=== PATIENT | female | born 1985 | race Caucasian/White ===

== ENCOUNTER 2019-06-19 21:52 | Emergency (ER) | payer BC ==
[2019-06-19] MEDS ORDERED: Pantoprazole 40 mg EC Tab PO STA (23:29)
[2019-06-19] MEDS ORDERED: Maalox 30 mL Cup PO ONE (23:30)
[2019-06-19] MEDS ORDERED: Maalox 30 mL Cup ONE (23:38)
[2019-06-19] MEDS ORDERED: Pantoprazole 40 mg EC Tab PO ONE (23:39)
[2019-06-19 23:53] LABS: % EOSINOPHILS 9.3 % (0.0-5.0); % LYMPHOCYTES 25.4 % (20.0-50.0); % MONOCYTES 9.7 % (2.0-10.0); % NEUTROPHILS 54.6 % (40.0-80.0); BASOPHILE ABSOLUTE 0.1 Th/cumm (0-0.2); EOSINOPHILE ABSOLUTE 0.6 Th/cmm (0.1-0.4); HEMOGLOBIN 13.3 gm/dL (12-16); LYMPHOCYTE ABSOLUTE 1.5 Th/cmm (1.5-3.0); MEAN CELL VOLUME 90.6 fl (81-100); MEAN CORPUSCULAR HEMOGLOBIN 30.2 pg (27.0-31.0); MEAN CORPUSCULAR HGB CONC 33.3 pg (28.0-36.0); MONOCYTE ABSOLUTE 0.6 Th/cmm (0.3-1.0); NEUTROPHILE ABSOLUTE 3.3 Th/cmm (1.8-8.0); PLATELET COUNT 187 Th/cmm (150-400); RED BLOOD COUNT 4.41 Mil/cmm (3.80-5.10); RED CELL DISTRIBUTION WIDTH 12.4 % (11.5-20.0); WHITE BLOOD COUNT 6.1 Th/cmm (4.8-10.8)
[2019-06-19 23:54] LABS: URINE SOURCE CLEAN C
[2019-06-20 00:06] LABS: ALB/GLOB RATIO 1.4 (1.0-1.8); ALBUMIN 3.9 gm/dL (3.7-5.3); ALKALINE PHOSPHATASE 52 U/L (34-104); ANION GAP 12.2 (7.0-16.0); BUN - UREA NITROGEN 12 mg/dL (7-25); CARBON DIOXIDE 25.7 mEq/L (21.0-31.0); CHLORIDE 106 mEq/L (98-107); CHOLESTEROL 129 mg/dL (<200); CREATININE - SERUM 0.7 mg/dL (0.6-1.2); GFR AFRICAN-AMERICAN > 60.0 ml/min (>90); GFR NON AFRICAN-AMERICAN > 60.0 ml/min; GLUCOSE 96 mg/dL (70-105); HDL -HIGH DENSITY LIPOPROTEIN 37 mg/dL (23-92); LIPASE 13 U/L (11-82); POTASSIUM SERUM 3.9 mEq/L (3.5-5.1); SGOT 21 U/L (13-39); SGPT/ALT 31 U/L (7-52); SODIUM SERUM 140 mEq/L (136-145); TOTAL PROTEIN,SERUM 6.6 gm/dL (6.0-8.3); TRIGLYCERIDES 138 mg/dL (<150)
[2019-06-20 00:17] LABS: URINE BILIRUBIN NEGATIVE (NEGATIVE); URINE BLOOD TRACE (NEGATIVE); URINE GLUCOSE (UA) NEGATIVE (NEGATIVE); URINE KETONE NEGATIVE (NEGATIVE); URINE LEUKOCYTE ESTERASE NEGATIVE (NEGATIVE); URINE MICROSCOPIC INDICATED? YES; URINE NITRATE NEGATIVE (NEGATIVE); URINE PROTEIN NEGATIVE (NEGATIVE); URINE UROBILINOGEN 0.2 E.U./dL (0.2 - 1.0)
[2019-06-20 00:25] LABS: URINE CLARITY SLIGHT HAZY (CLEAR); URINE COLOR YELLOW
[2019-06-20 00:30] LABS: URINE BACTERIA NONE SEEN /hpf (NONE SEEN); URINE EPITHELIAL CELLS RARE /lpf (FEW); URINE WBC 0-2 /hpf (0-5)
[2019-06-20 00:31] LABS: URINE RBC 0-2 /hpf (0-5)
[2019-06-20 00:36] LABS: AMPHETAMINE URINE NEGATIVE (NEGATIVE); BARBITURATES URINE NEGATIVE (NEGATIVE); BENZODIAZEPINES QUAL URINE NEGATIVE (NEGATIVE); CANNABINOID THC NEGATIVE (NEGATIVE); COCAINE METABOLITE QUAL URINE NEGATIVE (NEGATIVE); METHADONE URINE NEGATIVE (NEGATIVE); METHAMPHETAMINES QUAL URINE NEGATIVE (NEGATIVE); OPIATES (MORPHINE) QUAL. URINE NEGATIVE (NEGATIVE); PHENCYCLIDINE (PCP) URINE NEGATIVE (NEGATIVE); TRICYCLICS (TCA) QUAL. URINE NEGATIVE (NEGATIVE)
[2019-06-20 00:40] LABS: ALB/GLOB RATIO 1.6 (1.0-1.8); ALBUMIN 4.1 gm/dL (3.7-5.3); TOTAL PROTEIN,SERUM 6.6 gm/dL (6.0-8.3)
[2019-06-20 00:41] LABS: BILIRUBIN,DIRECT 0.07 mg/dL (0.0-0.2)
--- NOTE | 2019-06-20 00:51 | ER Physician Documentation ---
DATE OF SERVICE: IDENTIFICATION: A 34-year-old female. She is a full code patient. Her body surface area is 2 square meters. CHIEF COMPLAINT AND HISTORY OF PRESENT ILLNESS: Right lumbar pain and right side of the abdomen since yesterday for more than 36 hours and today it has worsened up and went all over the abdomen. She felt some gastric discomfort also for which she took some Pepto-Bismol and she took Aleve 2 tablets twice a day today, and off and on, she has been taking Aleve to relieve the pain. By the way, she also takes once a week, a few beers as needed. She does not smoke. She once did try marijuana cigarette, she did say that yes she inhaled a little bit, but no side effect occurred according to her. She denies any history of any pancreatitis. She gives a history suggestive of gastritis and GERD, one needs to rule out if she has any pancreatitis. There is no history of any heart disease, liver disease. There is no history of any palpitations. Pulmonary page, no history of any pneumonia, TB, pulmonary embolism, COPD, emphysema, bronchitis. Other than taking one gulp from the Pepto-Bismol, she took it by herself on her own. Perhaps, she might have tried that before and she has been taking Aleve on a regular basis, at least a couple of times a month, 4 tablets a day, 2 tablets twice a day, which is NSAID and which along with beer will make her life miserable and give her gastritis, GERD, esophagitis, can also give rise to perforation and can give a history of chronic abdominal epigastric pain. She would need chronically taking a PPI along with Reglan and she might need an EGD to be done to see if there is any H. pylori infection or any gastritis, GERD, or any esophagitis, etc. is present or not. The patient is passing some gas from below. Other than that, she does not have any significant complaints. Past history is otherwise benign and negative. She said she had checked up by her spa attendant. She had ultrasound for both her ovaries through the vaginal examination and the ovaries were normal. At least, she denied any pelvic infections to me. She did not take any antibiotics that she never had any upper endoscopy or lower endoscopy done before. She is a little chubby. Her vital signs done by the nurse shows temperature to be 97.8, pulse of 70, respirations of 18, blood pressure 123/77, oxygen saturation 96%, height 5 feet 6 inches, weighing 201 pounds, so she is mildly obese. MEDICAL HISTORY: Otherwise benign and negative. SURGICAL HISTORY: She has a cholecystectomy done before. FAMILY HISTORY: Essentially benign and negative. PERSONAL HISTORY: She is for the past 7 years. She knows her for the past 15 years. Her pain level according to the nurse writing is 7/10. She is a full code patient. Ambulatory: Yes. ALLERGIES: No known allergies. The patient does have some nausea and right lower quadrant pain, but there is no definite evidence of appendicitis present. There is no history of any Gabriel's sign because the gallbladder is out. There is no history that suggests that she has a biliary stone, etc. She denies any chest pain, cardiomyopathy, etc. REVIEW OF SYSTEMS: EYES: No history of double vision, blurring, blindness. CENTRAL NERVOUS SYSTEM: No history of TIA, stroke, encephalitis, meningitis. PULMONARY: No history of pneumonia, TB, pulmonary embolism, COPD, emphysema, bronchitis. BONES AND JOINTS: No significant complaints. Overall, general body stature appears to show that she is mildly obese. Advised to eat less fat, less cholesterol, and more ambulatory status and avoid drinking of beer and avoid to use any nonsteroidal anti-inflammatory drugs which includes aspirin, Bufferin, ibuprofen, Aleve, and any other plenty of nonsteroidal anti-inflammatory drugs which could include tramadol, Ultram, or diclofenac; all these things can cause gastritis along with the use of alcohol that can also cause gastritis, GERD, esophagitis, and regurgitation and maybe aspiration pneumonia, but none of that is present at the present moment. No gout, mild degenerative joint disease and she has to lose weight, otherwise she will be getting more osteoarthritis as the time goes by and if she gains more weight. GENITOURINARY: No burning, no frequency, no dysuria. ENDOCRINE: No diabetes mellitus. No hypo- or hyperthyroidism. No Yudith syndrome. Other review of system is essentially normal. Cancer page negative. Blood disease, essentially negative. No childhood diseases. No congenital disease, no acquired disease. PHYSICAL EXAMINATION: VITAL SIGNS: I already mentioned the vital signs. GENERAL: She appears to be awake, alert, oriented, not in any acute cardiorespiratory distress. Minimal aches and pains. To me, her pain level is not 7 out 10. To me, I would say it is 2 or 3 out of 10 by looking at her and by examination of her and feeling of her. CENTRAL NERVOUS SYSTEM: Appears to be normal. EAR, NOSE, THROAT: Appears to be normal. No otitis media. No meningeal signs. CHEST: Clear. NECK: Trachea being central. LUNGS: Fairly good air entry in both lungs burgos. No rales, rhonchi. or bronchial breathing. ABDOMEN: Epigastric mild tenderness noted. Vague tenderness noted all over the abdomen. No tenderness noted in the costovertebral angle. BONES AND JOINTS: Essentially minimal osteoarthritis is present. CLINICAL IMPRESSION: The patient presented with abdominal pain, most likely the patient may be having gastritis, esophagitis, gastroesophageal reflux disease. Pancreatitis needs to be ruled out and the patient is advised not to take any nonsteroidal anti-inflammatory drugs. Advised not to drink any alcoholic beverages, no smoking, not taking any Aleve, not taking any other nonsteroidal drugs or steroids, etc. and not alcohol 100% because it will make her life miserable and her symptoms more worsened. Drug screen has been ordered to see if there is any other drug that she may be taking that I am not aware, so we will check that out to see if there is any drug screen or is there a urine culture and sensitivity has been ordered. Lipase level, amylase level has been ordered. CBC and liver profile has been ordered. The patient has been given aluminum hydroxide, Mylicon, which I do not think we have it, so we gave her Maalox 80 mg, Reglan 10 mg p.o., and Protonix has been given, and I believe we will wait for the lab results to come back. If she has some diarrhea or something, maybe she might be having minimal electrolyte imbalance and if her lipid profile is high, we will advise her to cut down the cholesterol intake and the patient should see her own physician. She also has told me by the way that she has HPV positive and she has not taken any vaccination; and if human papilloma virus present in her, and where it is present, how it is present, her spa attendant should know it and the patient should get a human papilloma virus vaccination. I believe in [place], we have only papilloma virus No. 9 available and if she sees her own spa attendant, if she is not aware then she might need to go to ID specialist and get papilloma virus injections. I believe there are 2 or 3 shots to be taken and that will prevent her from getting cancerous lesions in her either vaginal area or rectal area depending upon the sexual habits that the family will discuss with her CHIEF PROCUREMENT OFFICER specialist. So, the current plan is this one and depending upon her response to the treatment and if the lipase level comes up that means there is mild pancreatitis and pancreatitis usually also occur as a result of alcohol ingestion. Again, cutting back on alcohol on a substantial quantity would help her in many ways. Thanks to the nurses for helping me take care of this patient. JOB# [id number]
[2019-06-20 01:10] LABS: BILIRUBIN,TOTAL 0.3 mg/dL (0.3-1.0)
[2019-06-20 01:14] LABS: BILIRUBIN,TOTAL 0.3 mg/dL (0.3-1.0)
== END 2019-06-20 00:40 | disposition home or self-care (01) ==
LOC: ER 21:52
DX: R10.84 Generalized abdominal pain (principal); M54.5 Low back pain
CPT/HCPCS: 36415-UA; 80053-TC; 80061-TC; 80076-TC; 80307; 81001-TC; 81003-TC; 83690-TC; 85025-TC; 87086-90; Z7610